=== PATIENT | male | born 1970 | race Caucasian/White ===

== ENCOUNTER 2017-09-26 21:04 | Emergency (ER) | payer BC ==
[2017-09-26 21:15] VITALS: RESP 18
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
--- NOTE | 2017-09-26 23:08 | CT ---
EXAMINATION TYPE: CT lower extremity RT wo con DATE OF EXAM: 09/26/2017 COMPARISON: NONE HISTORY: right ankle pain. Fractures. CT DLP: 301.30 mGycm Automated exposure control for dose reduction was used. FINDINGS: There is severely comminuted fracture of the distal tibia. Fracture lines extend into at least 2 or 3 places to the articular surface with the talus. There is fairly good apposition and alignment of the major fragments. There is a comminuted transverse fracture of the distal fibula at the same level. T he ankle mortise is in reasonable anatomic position considering the degree of comminution of the frac tures. The talus appears intact. The calcaneus is intact. There are plantar and Achilles calcaneal sp urs. IMPRESSION: SEVERELY COMMINUTED FRACTURES OF THE DISTAL TIBIA AND FIBULA WITH FRACTURE LINES EXTENDING TO THE ANK LE JOINT. NO DISLOCATION. NO FRACTURE SEEN IN THE HINDFOOT TALUS AND CALCANEUS.
[2017-09-26 23:26] VITALS: BP 138/82; PULSE 101; TEMP 98
== END 2017-09-26 23:26 | disposition home or self-care (01) ==
LOC: EC 21:04
DX: S82.61XA Displaced fracture of lateral malleolus of right fibula, initial encounter for closed fracture (principal); G47.30 Sleep apnea, unspecified; Z99.89 Dependence on other enabling machines and devices; F17.200 Nicotine dependence, unspecified, uncomplicated; Z86.73 Personal history of transient ischemic attack (TIA), and cerebral infarction without residual deficits; Z79.82 Long term (current) use of aspirin; Z79.891 Long term (current) use of opiate analgesic; Y08.89XA Assault by other specified means, initial encounter; Y92.89 Other specified places as the place of occurrence of the external cause
CPT/HCPCS: 29515; 70450; 72125; 99285

== ENCOUNTER 2020-01-16 11:44 | Emergency (ER) | payer BC, OTHER ==
[2020-01-16] MEDS ORDERED: SODIUM CHLORIDE 0.9% 1,000 ML IV STA ×2 (13:00)
[2020-01-16] MEDS ORDERED: MORPHINE SULFATE 4 MG/ML SYRINGE IVP STA (13:01)
[2020-01-16 13:18] LABS: Basophils # (A) 0.1 k/uL (0-0.2); Basophils % (A) 1 %; Eosinophils # (A) 0.4 k/uL (0-0.7); Eosinophils % (A) 3 %; HCT 52.6 % (39.0-53.0); HGB 17.6 gm/dL (13.0-17.5); Lymphocytes # (A) 1.3 k/uL (1.0-4.8); Lymphocytes % (A) 11 %; MCHC 33.4 g/dL (31.0-37.0); MCV 95.8 fL (80.0-100.0); Mean Platelet Volume 8.4; Monocytes # (A) 0.8 k/uL (0-1.0); Monocytes % (A) 6 %; Neutrophils # (A) 9.3 k/uL (1.3-7.7); Neutrophils % (A) 78 %; Platelet Count 249 k/uL (150-450); RBC 5.49 m/uL (4.30-5.90); RDW 13.5 % (11.5-15.5)
[2020-01-16 13:29] LABS: Partial Thromboplastin Time 25.9 sec (22.0-30.0); Prothrombin Time 10.1 sec (9.0-12.0)
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
[2020-01-16 13:37] LABS: ALT 21 U/L (4-49); AST 38 U/L (17-59); African American GFR (CKD) >90 (>60 ml/min/1.73 sqM); Albumin 4.3 g/dL (3.5-5.0); Alkaline Phosphatase 91 U/L (38-126); Anion Gap 8 mmol/L; Blood Urea Nitrogen 11 mg/dL (9-20); Calcium 9.1 mg/dL (8.4-10.2); Carbon Dioxide 24 mmol/L (22-30); Chloride 107 mmol/L (98-107); Glucose 105 mg/dL (74-99); Non-African American GFR(CKD) >90 (>60 ml/min/1.73 sqM); Potassium 3.9 mmol/L (3.5-5.1); Sodium 139 mmol/L (137-145); Total Bilirubin 0.9 mg/dL (0.2-1.3); Total Protein 7.7 g/dL (6.3-8.2)
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
[2020-01-16] MEDS ORDERED: KETOROLAC 30 MG/ML 1 ML VIAL IVP STA (14:30)
[2020-01-16] MEDS ORDERED: HYDROmorphone 1 MG/ML 1 ML SYRINGE IVP STA (14:30)
[2020-01-16] MEDS ORDERED: ORPHENADRINE 30 MG/ML 2 ML VIAL IM STA (14:30)
[2020-01-16 14:48] LABS: Appearance,Urine Clear (Clear); Bilirubin,Urine Negative (Negative); Blood,Urine Negative (Negative); Color,Urine Yellow; Glucose,Urine (UA) Negative (Negative); Ketones,Urine Negative (Negative); Leukocyte Esterase,Urine Negative (Negative); Mucus,Urine Few /hpf; Nitrite,Urine Negative (Negative); Protein,Urine 1+ (Negative); RBC,Urine 3 /hpf (0-5); Squamous Epithelial Cell,Urine <1 /hpf (0-4); WBC,Urine 2 /hpf (0-5)
[2020-01-16 14:58] LABS: Specific Gravity,Urine >1.050 (1.001-1.035)
[2020-01-16 15:03] VITALS: BP 156/98; PULSE 83; RESP 16; TEMP 98
== END 2020-01-16 15:03 | disposition home or self-care (01) ==
LOC: EC 11:44
DX: S22.31XA Fracture of one rib, right side, initial encounter for closed fracture (principal); S32.009A Unspecified fracture of unspecified lumbar vertebra, initial encounter for closed fracture; F17.200 Nicotine dependence, unspecified, uncomplicated; G47.30 Sleep apnea, unspecified; Z99.89 Dependence on other enabling machines and devices; Z86.73 Personal history of transient ischemic attack (TIA), and cerebral infarction without residual deficits; V86.55XA Driver of 3- or 4- wheeled all-terrain vehicle (ATV) injured in nontraffic accident, initial encounter; Y93.89 Activity, other specified; Y92.410 Unspecified street and highway as the place of occurrence of the external cause
CPT/HCPCS: 36415; 93005; 86900; 86901; 80053; 84484; 85025; 85610; 85730; 86850; 81001; 71045; 71260; 74177; 99285; 96374; 96375 ×2; 96372; 96361 ×2; J2270; J2360; J1885; J1170; Q9967

== ENCOUNTER 2020-07-31 17:44 | Emergency (ER) | payer BC ==
[2020-07-31 17:48] VITALS: BP 189/105; PULSE 88; RESP 18; TEMP 97
[2020-07-31] MEDS ORDERED: ceFAZolin 1,000 MG VIAL (IM USE) IM STA (17:54)
[2020-07-31] MEDS ORDERED: LIDOCAINE 1% INJ 10MG/ML (20 ML MDV) SQ ONE (17:54)
[2020-07-31] MEDS ORDERED: DIPH,PERTUS(ACELL)TETVAC-LF 0.5 ML VIAL IM ONE (17:54)
--- NOTE | 2020-07-31 18:18 | XR ---
RESULT: HISTORY: 2,3 digit laceration at tips TECHNIQUE: 3 views of the left hand were obtained. COMPARISON: None. FINDINGS: There is mildly displaced fracture of the index finger distal phalangeal tuft. There are overlying so ft tissue defects overlying the index and middle finger distal phalanx. No definite radiopaque foreig n body. No dislocation. IMPRESSION: Index finger distal phalangeal tuft fracture. Soft tissue wound/laceration involving the index and middle fingers. No definite radiopaque foreign b [place].
[2020-07-31] MEDS ORDERED: BACITRACIN OINT 1 EACH PACKET TOPICAL ONE (18:21)
[2020-07-31] MEDS ORDERED: HYDROcodone/APAP 5-325MG 1 EACH TAB PO STA (18:26)
--- NOTE | 2020-07-31 18:32 | ED ---
Wound/Laceration HPI - General Chief Complaint: Wound/Laceration Stated Complaint: finger injury Time Seen by Provider: 07/31/20 17:50 Source: patient Mode of arrival: ambulatory Limitations: no limitations - History of Present Illness Initial Comments: 2-year-old male presenting today for chief complaint of lacerations to fingers 2 and 3. Patient states that he cut the tips off and there is not much to "sew"/ he states he already made and appointment with his orthopedic hand surgeon for tomorrow morning but just needed wound care/pain management. pt states that he just recentlt did the same thing a few months ago. pt states the bleeding is controlled. he admits to 10/10 pain. patient denies other areas of injury. Patient has no additional complaints. - Related Data Previous Rx's Medication Instructions Recorded HYDROcodone/APAP 5-325MG [[place] 1 tab PO Q4HR PRN 3 Days #18 tab 01/16/20 5-325] Ibuprofen [Motrin] 600 mg PO Q8HR PRN #20 tab 01/16/20 Orphenadrine [Norflex] 100 mg PO Q12H #20 tablet.er 01/16/20 Cephalexin [Keflex] 500 mg PO Q6HR 10 Days #40 cap 07/31/20 HYDROcodone/APAP 5-325MG [[place] 1 tab PO Q4HR PRN 3 Days #18 tab 07/31/20 5-325] Allergies Allergy/AdvReac Type Severity Reaction Status Date / Time No Known Allergies Allergy Verified 07/31/20 17:48 Review of Systems ROS Statement: Those systems with pertinent positive or pertinent negative responses have been documented in the HPI. ROS Other: All systems not noted in ROS Statement are negative. Past Medical History Past Medical History: CVA/TIA, Hypertension, Sleep Apnea/CPAP/BIPAP Additional Past Medical History / Comment(s): hx cva-lt hand numbness,rt side of face n/t,eye twitches,top of rt hand numbness History of Any Multi-Drug Resistant Organisms: None Reported Past Surgical History: Orthopedic Surgery Additional Past Surgical History / Comment(s): reconstruction yamila shoulders,nasal surgery Past Anesthesia/Blood Transfusion Reactions: No Reported Reaction Past Psychological History: No Psychological Hx Reported Past Alcohol Use History: Occasional Past Drug Use History: None Reported - Past Family History Father Family Medical History: Diabetes Mellitus Additional Family Medical History / Comment(s): Parkinson's Disease General Exam - General Exam Comments Initial Comments: General: The patient is awake and alert, in no distress, and does not appear acutely ill. Eye: +3 mm pupils are equal, round and reactive to light, extra-ocular movements are intact. No nystagmus. There is normal conjunctiva bilaterally. No signs of icterus. Ears, nose, mouth and throat: There are moist mucous membranes and no oral lesions. Musculoskeletal: Normal ROM, at the MCP, DIP and PIP joints of all 5 digits of the affected left hand. Strength 5/5. Sensation intact. Radial pulses equal bilaterally 2+. Capillary refill of affected digits <3 seconds. There is very irregular skin avulsions to the 2nd and 3rd finger pads, the 2nd digit the avulsion is on the dorsal aspect and the 3rd digit is prominently on the tip and ventral aspect. bleedin controlled. Neurological: A&O x 3. CN II-XII intact grossly, There are no obvious motor or sensory deficits. Coordination appears grossly intact. Speech is normal. Skin: Skin is warm and dry and no rashes or lesions are noted. Psychiatric: Cooperative, appropriate mood & affect, normal judgment. Limitations: no limitations Course Vital Signs 07/31/20 17:45 Temperature 97 F L Pulse Rate 88 Respiratory 18 Rate Blood Pressure 189/105 O2 Sat by Pulse 98 Oximetry Medical Decision Making - Medical Decision Making XR index finger tuft fracture, open. tendons appear intact. skin avulsions very irregular. patient wound irrigated after digital block. pt given ancef. tdap. bandaged and will be discharged with orthopedic f/u tomorrow and oral antibiotics. pt is agreeable to this care plan and discharge. Disposition Clinical Impression: Open fracture of tuft of distal phalanx of finger, Avulsion, finger tip Disposition: HOME SELF-CARE Condition: Good Additional Instructions: Please use medication as discussed. Please follow-up with orthopedic surgery tomorrow as scheduled. Please return to emergency room if the symptoms increase or worsen or for any other concerns. Prescriptions: Cephalexin [Keflex] 500 mg PO Q6HR 10 Days #40 cap HYDROcodone/APAP 5-325MG [[place] 5-325] 1 tab PO Q4HR PRN 3 Days #18 tab PRN Reason: Pain Is patient prescribed a controlled substance at d/c from ED?: No Referrals: Bhavesh Shah MD [Primary Care Provider] - 1-2 days Efren Pereira DO [Doctor of Osteopathic Medicine] - 1-2 days Time of Disposition: 18:31
[2020-07-31] MEDS ORDERED: GELATIN SPONGE,ABSORB (LARGE) 1 EACH SPONGE TOPICAL STA (18:45)
--- NOTE | 2020-08-16 17:04 | CDI ---
Dear Dr Jaime Ramirez DO, Please do addendum for Digital nerve block procedure and site , procedure done , Thank you, Andriy Ramos, [employer] Technician. If you have any questions, please contact Bench [employer]ic at [phone]. mtdD
== END 2020-07-31 19:08 | disposition home or self-care (01) ==
LOC: EC 17:44
DX: S62.631B Displaced fracture of distal phalanx of left index finger, initial encounter for open fracture (principal); S62.633B Displaced fracture of distal phalanx of left middle finger, initial encounter for open fracture; Z86.73 Personal history of transient ischemic attack (TIA), and cerebral infarction without residual deficits; G47.33 Obstructive sleep apnea (adult) (pediatric); Z99.89 Dependence on other enabling machines and devices; Z23 Encounter for immunization; W31.2XXA Contact with powered woodworking and forming machines, initial encounter
CPT/HCPCS: 99284; 90471; 96372; 73130; 90715; J0690; J2001

== ENCOUNTER 2021-12-11 04:40 | Emergency (ER) | payer BC ==
[2021-12-11 04:46] VITALS: BP 164/97; PULSE 78; RESP 18; TEMP 98
[2021-12-11] MEDS ORDERED: MORPHINE SULFATE 4 MG/ML SYRINGE IM STA (05:00)
--- NOTE | 2021-12-11 05:15 | XR ---
EXAMINATION TYPE: XR ribs RT DATE OF EXAM: 12/11/2021 COMPARISON: NONE HISTORY: Rib pain TECHNIQUE: 4 views FINDINGS: There is some thickening of the right 10th rib related to old healed fracture. No acute fra cture. No pleural effusion or pneumothorax. There is some arthritic change in the right shoulder join t. IMPRESSION: No acute rib fracture.
--- NOTE | 2021-12-11 05:21 | ED ---
Back Pain HPI - General Chief Complaint: Back Pain/Injury Stated Complaint: Fall Time Seen by Provider: 12/11/21 04:50 Source: patient Limitations: no limitations - History of Present Illness MD Complaint: back injury, fall Onset/Timin -: days(s) Similar Symptoms Previously: No Place: street Radiation: none Severity: moderate Quality: aching Consistency: constant Improves With: immobilization Worsens With: movement Context: fall Associated Symptoms: denies other symptoms - Related Data Previous Rx's Medication Instructions Recorded HYDROcodone/APAP 5-325MG [[place] 1 tab PO Q4HR PRN 3 Days #18 tab 01/16/20 5-325] Ibuprofen [Motrin] 600 mg PO Q8HR PRN #20 tab 01/16/20 Orphenadrine [Norflex] 100 mg PO Q12H #20 tablet.er 01/16/20 Cephalexin [Keflex] 500 mg PO Q6HR 10 Days #40 cap 07/31/20 HYDROcodone/APAP 5-325MG [[place] 1 tab PO Q4HR PRN 3 Days #18 tab 07/31/20 5-325] HYDROcodone/APAP 5-325MG [[place] 1 tab PO Q4HR PRN 3 Days #18 tab 12/11/21 5-325] Ibuprofen 800 mg PO TID #20 tablet 12/11/21 Allergies Allergy/AdvReac Type Severity Reaction Status Date / Time No Known Allergies Allergy Verified 12/11/21 04:47 Review of Systems ROS Statement: Those systems with pertinent positive or pertinent negative responses have been documented in the HPI. ROS Other: All systems not noted in ROS Statement are negative. Constitutional: Denies: fever, weakness Respiratory: Denies: cough, dyspnea Cardiovascular: Denies: chest pain, palpitations, syncope Gastrointestinal: Denies: abdominal pain, nausea, vomiting, diarrhea Genitourinary: Denies: dysuria, hematuria, testicular pain Musculoskeletal: Reports: as per HPI, back pain Skin: Denies: rash Neurological: Denies: headache, weakness, numbness Past Medical History Past Medical History: CVA/TIA, Hypertension, Sleep Apnea/CPAP/BIPAP Additional Past Medical History / Comment(s): hx cva-lt hand numbness,rt side of face n/t,eye twitches,top of rt hand numbness History of Any Multi-Drug Resistant Organisms: None Reported Past Surgical History: Orthopedic Surgery Additional Past Surgical History / Comment(s): reconstruction yamila shoulders,nasal surgery Past Anesthesia/Blood Transfusion Reactions: No Reported Reaction Past Psychological History: No Psychological Hx Reported Smoking Status: Current every day smoker Past Alcohol Use History: Occasional Past Drug Use History: None Reported - Past Family History Father Family Medical History: Diabetes Mellitus Additional Family Medical History / Comment(s): Parkinson's Disease General Exam Limitations: no limitations General appearance: alert, in no apparent distress Head exam: Present: atraumatic, normocephalic Eye exam: Present: normal appearance. Absent: scleral icterus, conjunctival injection Neck exam: Present: normal inspection, full ROM. Absent: tenderness Respiratory exam: Present: normal lung sounds bilaterally, chest wall tenderness (Right posterior ribs). Absent: respiratory distress, wheezes, rales, rhonchi, stridor Cardiovascular Exam: Present: regular rate, normal rhythm, normal heart sounds. Absent: systolic murmur, diastolic murmur, rubs, gallop GI/Abdominal exam: Present: soft. Absent: distended, tenderness, guarding, rebound, rigid, organomegaly, mass, pulsatile mass Extremities exam: Present: normal inspection, normal capillary refill Back exam: Present: normal inspection. Absent: CVA tenderness (R), CVA tenderness (L), paraspinal tenderness, vertebral tenderness Neurological exam: Present: alert, normal gait. Absent: motor sensory deficit Skin exam: Present: warm, dry, intact, normal color. Absent: rash Course Vital Signs 12/11/21 04:43 Temperature 98.0 F Pulse Rate 78 Respiratory 18 Rate Blood Pressure 164/97 O2 Sat by Pulse 97 Oximetry Disposition Clinical Impression: Thoracic back pain Disposition: HOME SELF-CARE Condition: Good Instructions (If sedation given, give patient instructions): Acute Low Back Pain (ED) Prescriptions: Ibuprofen 800 mg PO TID #20 tablet HYDROcodone/APAP 5-325MG [[place] 5-325] 1 tab PO Q4HR PRN 3 Days #18 tab PRN Reason: Pain Is patient prescribed a controlled substance at d/c from ED?: No Referrals: Bhavesh Shah MD [Primary Care Provider] - 1-2 days
== END 2021-12-11 05:28 | disposition home or self-care (01) ==
LOC: EC 04:40
DX: M54.6 Pain in thoracic spine (principal); I10 Essential (primary) hypertension; F17.200 Nicotine dependence, unspecified, uncomplicated; Z86.73 Personal history of transient ischemic attack (TIA), and cerebral infarction without residual deficits; Z79.899 Other long term (current) drug therapy; W19.XXXA Unspecified fall, initial encounter; Y92.410 Unspecified street and highway as the place of occurrence of the external cause
CPT/HCPCS: 71100; 99284; 96372; J2270

== ENCOUNTER 2022-05-06 11:18 | Emergency (ER) | payer BC ==
[2022-05-06 11:34] VITALS: BP 166/87; PULSE 74; RESP 16; TEMP 98
[2022-05-06] MEDS ORDERED: SODIUM CHLORIDE 0.9% 1,000 ML IV STA (11:40)
--- NOTE | 2022-05-06 11:42 | ED ---
General Adult HPI - General Chief complaint: Abdominal Pain Stated complaint: rib pain Time Seen by Provider: 05/06/22 11:29 Source: patient, RN notes reviewed Mode of arrival: ambulatory Limitations: no limitations - History of Present Illness Initial comments: Patient is a pleasant 51-year-old male presenting to the emergency department with concern with right rib pain. Patient was on a tractor yesterday when he pulled a picnic table. This released and hit him in the right ribs. Patient does have discomfort since that time. Discomfort does increase with position changes or deep breaths. Patient may be mildly short of breath. No history of similar trauma previously. No other area of injury or concern. - Related Data Previous Rx's Medication Instructions Recorded HYDROcodone/APAP 5-325MG [[place] 1 tab PO Q4HR PRN 3 Days #18 tab 01/16/20 5-325] Ibuprofen [Motrin] 600 mg PO Q8HR PRN #20 tab 01/16/20 Orphenadrine [Norflex] 100 mg PO Q12H #20 tablet.er 01/16/20 Cephalexin [Keflex] 500 mg PO Q6HR 10 Days #40 cap 07/31/20 HYDROcodone/APAP 5-325MG [[place] 1 tab PO Q4HR PRN 3 Days #18 tab 07/31/20 5-325] HYDROcodone/APAP 5-325MG [[place] 1 tab PO Q4HR PRN 3 Days #18 tab 12/11/21 5-325] Ibuprofen 800 mg PO TID #20 tablet 12/11/21 Allergies Allergy/AdvReac Type Severity Reaction Status Date / Time No Known Allergies Allergy Verified 12/11/21 04:47 Review of Systems ROS Statement: Those systems with pertinent positive or pertinent negative responses have been documented in the HPI. ROS Other: All systems not noted in ROS Statement are negative. Constitutional: Denies: fever Eyes: Denies: eye pain ENT: Denies: ear pain Respiratory: Reports: as per HPI Cardiovascular: Reports: as per HPI, other (Discomfort right lateral lower ribs) Endocrine: Denies: fatigue Gastrointestinal: Denies: abdominal pain Genitourinary: Denies: dysuria Musculoskeletal: Denies: arthralgia Past Medical History Past Medical History: CVA/TIA, Hypertension, Sleep Apnea/CPAP/BIPAP Additional Past Medical History / Comment(s): hx cva-lt hand numbness,rt side of face n/t,eye twitches,top of rt hand numbness History of Any Multi-Drug Resistant Organisms: None Reported Past Surgical History: Orthopedic Surgery Additional Past Surgical History / Comment(s): reconstruction yamila shoulders,nasal surgery Past Anesthesia/Blood Transfusion Reactions: No Reported Reaction Past Psychological History: No Psychological Hx Reported Smoking Status: Current every day smoker Past Alcohol Use History: Occasional Past Drug Use History: Marijuana - Past Family History Father Family Medical History: Diabetes Mellitus Additional Family Medical History / Comment(s): Parkinson's Disease General Exam Limitations: no limitations General appearance: alert, in no apparent distress Head exam: Present: normocephalic Eye exam: Present: normal appearance Neck exam: Present: normal inspection. Absent: tenderness Respiratory exam: Present: normal lung sounds bilaterally, chest wall tenderness (Right anterior lateral lower ribs) Cardiovascular Exam: Present: regular rate, normal rhythm GI/Abdominal exam: Present: soft, normal bowel sounds. Absent: distended, tenderness, guarding, rebound, rigid, pulsatile mass Extremities exam: Present: normal inspection, full ROM Back exam: Present: CVA tenderness (R) (Mild right) Neurological exam: Present: alert Psychiatric exam: Present: normal affect, normal mood Skin exam: Present: normal color Course Vital Signs 05/06/22 05/06/22 05/06/22 11:20 11:31 12:25 Temperature 97.9 F 98 F Pulse Rate 70 74 Respiratory 18 16 16 Rate Blood Pressure 157/84 166/87 O2 Sat by Pulse 100 99 Oximetry Medical Decision Making - Medical Decision Making Patient reevaluated and feeling better. Patient updated. - Lab Data Result diagrams: 05/06/22 11:50 05/06/22 11:50 Lab Results 05/06/22 05/06/22 05/06/22 Range/Units 11:50 11:50 11:50 WBC 8.1 (3.8-10.6) k/uL RBC 4.63 (4.30-5.90) m/uL Hgb 16.7 (13.0-17.5) gm/dL Hct 47.0 (39.0-53.0) % MCV 101.4 H (80.0-100.0) fL MCH 36.0 H (25.0-35.0) pg MCHC 35.5 (31.0-37.0) g/dL RDW 12.3 (11.5-15.5) % Plt Count 227 (150-450) k/uL MPV 8.9 Neutrophils % 72 % Lymphocytes % 16 % Monocytes % 5 % Eosinophils % 5 % Basophils % 1 % Neutrophils # 5.8 (1.3-7.7) k/uL Lymphocytes # 1.3 (1.0-4.8) k/uL Monocytes # 0.4 (0-1.0) k/uL Eosinophils # 0.4 (0-0.7) k/uL Basophils # 0.1 (0-0.2) k/uL PT 11.0 (9.0-12.0) sec INR 1.0 (<1.2) APTT 26.2 (22.0-30.0) sec Sodium 140 (137-145) mmol/L Potassium 3.7 (3.5-5.1) mmol/L Chloride 106 (98-107) mmol/L Carbon Dioxide 24 (22-30) mmol/L Anion Gap 10 mmol/L BUN 12 (9-20) mg/dL Creatinine 0.76 (0.66-1.25) mg/dL Est GFR (CKD-EPI)AfAm >90 (>60 ml/min/1.73 sqM) Est GFR (CKD-EPI)NonAf >90 (>60 ml/min/1.73 sqM) Glucose 132 H (74-99) mg/dL Calcium 8.6 (8.4-10.2) mg/dL Total Bilirubin 1.1 (0.2-1.3) mg/dL AST 26 (17-59) U/L ALT 17 (4-49) U/L Alkaline Phosphatase 78 (38-126) U/L Total Protein 6.7 (6.3-8.2) g/dL Albumin 3.8 (3.5-5.0) g/dL Amylase 68 (30-110) U/L Lipase 72 (23-300) U/L Urine Color Urine Appearance (Clear) Urine pH (5.0-8.0) Ur Specific [place] (1.001-1.035) Urine Protein (Negative) Urine Glucose (UA) (Negative) Urine Ketones (Negative) Urine Blood (Negative) Urine Nitrite (Negative) Urine Bilirubin (Negative) Urine Urobilinogen (<2.0) mg/dL Ur Leukocyte Esterase (Negative) 05/06/22 Range/Units 12:11 WBC (3.8-10.6) k/uL RBC (4.30-5.90) m/uL Hgb (13.0-17.5) gm/dL Hct (39.0-53.0) % MCV (80.0-100.0) fL MCH (25.0-35.0) pg MCHC (31.0-37.0) g/dL RDW (11.5-15.5) % Plt Count (150-450) k/uL MPV Neutrophils % % Lymphocytes % % Monocytes % % Eosinophils % % Basophils % % Neutrophils # (1.3-7.7) k/uL Lymphocytes # (1.0-4.8) k/uL Monocytes # (0-1.0) k/uL Eosinophils # (0-0.7) k/uL Basophils # (0-0.2) k/uL PT (9.0-12.0) sec INR (<1.2) APTT (22.0-30.0) sec Sodium (137-145) mmol/L Potassium (3.5-5.1) mmol/L Chloride (98-107) mmol/L Carbon Dioxide (22-30) mmol/L Anion Gap mmol/L BUN (9-20) mg/dL Creatinine (0.66-1.25) mg/dL Est GFR (CKD-EPI)AfAm (>60 ml/min/1.73 sqM) Est GFR (CKD-EPI)NonAf (>60 ml/min/1.73 sqM) Glucose (74-99) mg/dL Calcium (8.4-10.2) mg/dL Total Bilirubin (0.2-1.3) mg/dL AST (17-59) U/L ALT (4-49) U/L Alkaline Phosphatase (38-126) U/L Total Protein (6.3-8.2) g/dL Albumin (3.5-5.0) g/dL Amylase (30-110) U/L Lipase (23-300) U/L Urine Color Yellow Urine Appearance Clear (Clear) Urine pH 7.5 (5.0-8.0) Ur Specific [place] 1.050 H (1.001-1.035) Urine Protein Trace H (Negative) Urine Glucose (UA) Negative (Negative) Urine Ketones Negative (Negative) Urine Blood Negative (Negative) Urine Nitrite Negative (Negative) Urine Bilirubin Negative (Negative) Urine Urobilinogen <2.0 (<2.0) mg/dL Ur Leukocyte Esterase Negative (Negative) - Radiology Data Radiology results: report reviewed (Old rib fractures. Possible enteritis. Cholelithiasis. No acute trauma), image reviewed (Old rib fracture) Disposition Clinical Impression: Chest wall contusion Disposition: HOME SELF-CARE Condition: Stable Instructions (If sedation given, give patient instructions): Rib Contusion (ED) Additional Instructions: Please follow-up to primary care physician in the next day or 2 for recheck. Return for difficulty breathing, increased pain, worsening or changing symptoms or any other concerns. Is patient prescribed a controlled substance at d/c from ED?: No Referrals: Bhavesh Shah MD [Primary Care Provider] - 1-2 days Time of Disposition: 12:48
[2022-05-06 12:02] LABS: Basophils # (A) 0.1 k/uL (0-0.2); Basophils % (A) 1 %; Eosinophils # (A) 0.4 k/uL (0-0.7); Eosinophils % (A) 5 %; HGB 16.7 gm/dL (13.0-17.5); Lymphocytes # (A) 1.3 k/uL (1.0-4.8); Lymphocytes % (A) 16 %; MCHC 35.5 g/dL (31.0-37.0); MCV 101.4 fL (80.0-100.0); Mean Platelet Volume 8.9; Monocytes # (A) 0.4 k/uL (0-1.0); Monocytes % (A) 5 %; Neutrophils # (A) 5.8 k/uL (1.3-7.7); Neutrophils % (A) 72 %; Platelet Count 227 k/uL (150-450); RBC 4.63 m/uL (4.30-5.90); RDW 12.3 % (11.5-15.5); WBC 8.1 k/uL (3.8-10.6)
[2022-05-06] MEDS ORDERED: HYDROmorphone 1 MG/ML 1 ML SYRINGE IVP STA (12:14)
[2022-05-06 12:17] LABS: Appearance,Urine Clear (Clear); Bilirubin,Urine Negative (Negative); Blood,Urine Negative (Negative); Color,Urine Yellow; Glucose,Urine (UA) Negative (Negative); Ketones,Urine Negative (Negative); Leukocyte Esterase,Urine Negative (Negative); Nitrite,Urine Negative (Negative); PH, Urine 7.5 (5.0-8.0); Protein,Urine Trace (Negative); Urobilinogen,Urine <2.0 mg/dL (<2.0)
[2022-05-06 12:21] LABS: ALT 17 U/L (4-49); AST 26 U/L (17-59); African American GFR (CKD) >90 (>60 ml/min/1.73 sqM); Albumin 3.8 g/dL (3.5-5.0); Alkaline Phosphatase 78 U/L (38-126); Amylase 68 U/L (30-110); Anion Gap 10 mmol/L; Blood Urea Nitrogen 12 mg/dL (9-20); Calcium 8.6 mg/dL (8.4-10.2); Carbon Dioxide 24 mmol/L (22-30); Chloride 106 mmol/L (98-107); Glucose 132 mg/dL (74-99); Lipase 72 U/L (23-300); Non-African American GFR(CKD) >90 (>60 ml/min/1.73 sqM); Potassium 3.7 mmol/L (3.5-5.1); Sodium 140 mmol/L (137-145); Total Bilirubin 1.1 mg/dL (0.2-1.3); Total Protein 6.7 g/dL (6.3-8.2)
--- NOTE | 2022-05-06 12:21 | XR ---
Right RIBS with chest x-ray HISTORY: Trauma, pain Frontal view of the chest and 4 views of the right ribs, comparison to chest x-ray dated 01/16/2020, r ight RIBS 12/11/2021, CT 05/06/2022 There is no evident pneumothorax or pleural effusion. Blunting the left costophrenic angle is a chronic finding, there are some interstitial changes present at this le chang. Postop changes are noted to the shoulders. The 10th rib on the right shows a previous fracture, there is pseudoarthrosis, fracture at the ninth rib posteriorly shows callus formation likely due to old fracture. Contrast material is present withi n the renal collecting systems. IMPRESSION: There are chronic fractures, pseudoarthrosis as described. No acute cardiopulmonary disea se is evident.
[2022-05-06 12:27] LABS: Partial Thromboplastin Time 26.2 sec (22.0-30.0)
--- NOTE | 2022-05-06 12:32 | CT ---
EXAMINATION TYPE: CT abdomen pelvis w con DATE OF EXAM: 05/06/2022 COMPARISON: CT 01/16/2020, right RIBS 12/11/2021 HISTORY: right flank trauma CT DLP: 1000 mGycm Automated exposure control for dose reduction was used. TECHNIQUE: Helical acquisition of images from the lung bases through the pelvis have been completed. CONTRAST: Performed without Oral Contrast and with IV Contrast, patient injected with 100 ml mL of Isovue 300. FINDINGS: There is calcification present along the left pleural margin. Some scarring is present with blunting the left costophrenic angle. LUNG BASES: No significant abnormality is appreciated. AORTA: No significant abnormality is appreciated. LIVER/GB: Dependent gallstones present within the gallbladder. Liver is enlarged and shows low attenu ation possibly due to hepatic steatosis. PANCREAS: No significant abnormality is seen. SPLEEN: No significant abnormality is seen. ADRENALS: No significant abnormality is seen. KIDNEYS: No significant abnormality is seen. REPRODUCTIVE ORGANS: No significant abnormality is seen Bowel: Jejunum shows thickened mallory. No evident bowel obstruction. Appendix is normal. No significan t abnormality is seen. FREE AIR: No Free Air visible. ASCITES: None visible. PELVIC ADENOPATHY: None visualized. RETROPERITONEAL ADENOPATHY: No Retroperitoneal Adenopathy visible. URINARY BLADDER: No significant abnormality is seen. OSSEOUS STRUCTURES: Right-sided 10th rib fracture is thought to be present on prior plain film, susp ect pseudarthrosis at this level, T9 fracture shows some callus formation suggesting remote injury. IMPRESSION: CORRELATE FOR POSSIBLE ENTERITIS. RIB FRACTURES THOUGHT TO BE CHRONIC. CHOLELITHIASIS. HEPATOMEGALY A ND HEPATIC STEATOSIS.
[2022-05-06] MEDS ORDERED: ACET/COD 300 MG/30 MG STARTER PACK 6 TAB BTL PO STA (12:47)
== END 2022-05-06 12:58 | disposition home or self-care (01) ==
LOC: EC 11:18
DX: S20.219A Contusion of unspecified front wall of thorax, initial encounter (principal); Z86.73 Personal history of transient ischemic attack (TIA), and cerebral infarction without residual deficits; I10 Essential (primary) hypertension; F17.200 Nicotine dependence, unspecified, uncomplicated; F12.90 Cannabis use, unspecified, uncomplicated; Z79.899 Other long term (current) drug therapy; W22.8XXA Striking against or struck by other objects, initial encounter
CPT/HCPCS: 36415; 80053; 82150; 83690; 85025; 85610; 85730; 81003; 71101; 74177; 99284; 96374; 96361; J1170; Q9967